=== PATIENT | male | born 1995 | race Hispanic/Latino ===

== ENCOUNTER 2022-01-21 12:09 | Emergency (ER) | payer OTHER ==
[~2022-01-21] VITALS: Ht 175.3 cm; Wt 108.9 kg
[2022-01-21] MEDS ORDERED: KETOROLAC 30MG VIAL (30MG/ML) IM ONE (14:00)
[2022-01-21] MEDS ORDERED: ORPHENADRINE CITRATE 30 MG/ML ML IM ONE (14:00)
[2022-01-21] MEDS ORDERED: NAPR500T6 PO (14:05)
[2022-01-21] MEDS ORDERED: CYCL10TA16 PO (14:05)
[2022-01-21 14:40] VITALS: BP 112/78
== END 2022-01-21 14:41 | disposition home or self-care (01) ==
LOC: EDH 12:09
DX: M54.50 Low back pain, unspecified (principal); Z79.1 Long term (current) use of non-steroidal anti-inflammatories (NSAID)
CPT/HCPCS: 96372 ×2; 99284; J1885; J2360